=== PATIENT | male | born 1970 ===

== ENCOUNTER 2018-02-16 15:25 | Emergency (ER) | payer BC, OTHER ==
[2018-02-16 15:26] VITALS: BMI 32.2
[2018-02-16] MEDS ORDERED: Lidocaine 2% Inj (20ml) INFIL ONE (15:55)
[2018-02-16] MEDS ORDERED: Amoxicillin-Clav 875-125 mg Tab PO STA (15:55)
[2018-02-16] MEDS ORDERED: Tetanus/Diphtheria Toxoids 0.5 ml Syringe IM ONE (15:55)
[2018-02-16] MEDS ORDERED: Lidocaine 2% MPF (5 ml) Inj ONE (15:58)
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
== END 2018-02-16 16:58 | disposition home or self-care (01) ==
LOC: C.ER 15:25
DX: S01.511A Laceration without foreign body of lip, initial encounter (principal); Y04.0XXA Assault by unarmed brawl or fight, initial encounter